=== PATIENT | female | born 1995 | race Caucasian/White ===

== ENCOUNTER 2023-05-09 06:29 | Day surgery (SDC) | payer BC ==
[~2023-05-09] VITALS: Ht 172.7 cm; Wt 104.0 kg
[2023-05-09] MEDS ORDERED: LR 1,000 ML IV ONE (06:30)
[2023-05-09] MEDS ORDERED: PRENATAL TABLET PO (07:24)
[2023-05-09] MEDS ORDERED: ADVIL200 MG PO (07:25)
[2023-05-09 07:41] VITALS: BP 129/79; PULSE 90; TEMP 98.2
[2023-05-09] MEDS ORDERED: Ketorolac 30 MG/ML VIAL ONE (08:19)
[2023-05-09] MEDS ORDERED: Ondansetron 4 MG/2 ML VIAL ONE (08:19)
[2023-05-09] MEDS ORDERED: fentaNYL 50 MCG/ML 2 ML VIAL ONE (08:19)
[2023-05-09] MEDS ORDERED: Lidocaine PF 2% (20 MG/ML) 5 ML VIAL ONE (08:20)
[2023-05-09] MEDS ORDERED: droPERidol 2.5 MG/ML 2 ML VIAL IV PRN (08:45)
[2023-05-09] MEDS ORDERED: Meperidine 50 MG/ML 1 ML VIAL IV PRN (08:45)
[2023-05-09] MEDS ORDERED: fentaNYL 50 MCG/ML 2 ML VIAL IV PRN (08:45)
[2023-05-09 08:50] VITALS: BP 130/81; PULSE 94; TEMP 98.1
[2023-05-09] MEDS ORDERED: oxyCODONE 5 MG TAB PO PRN (09:00)
[2023-05-09] MEDS ORDERED: Acetaminophen 500 MG TAB PO PRN (09:00)
[2023-05-09] MEDS ORDERED: LR 1,000 ML IV SCH (09:00)
[2023-05-09] MEDS ORDERED: Naloxone 0.4 MG/ML VIAL IV PRN (09:00)
[2023-05-09] MEDS ORDERED: Doxycycline Monohydrate 100 MG CAP PO ONE (09:00)
[2023-05-09] MEDS ORDERED: Ondansetron 4 MG/2 ML VIAL IV PRN (09:00)
[2023-05-09] MEDS ORDERED: Docusate Sodium 100 MG CAP PO SCH (09:00)
[2023-05-09 09:05] VITALS: BP 128/76; PULSE 89
[2023-05-09 09:20] VITALS: BP 122/76; PULSE 92
--- NOTE | 2023-05-09 09:44 | NUR ---
[id number]: PT TO RECOVERY BAY 2 FROM [place] S/P D&C A&O, PLACED ON MONITOR, VSS ON RA RECEIVED REPORT AND ASSUMED CARE OF PT FROM LUCITA BUSTILLOS AND CARLOS VILLA (PERIPAD WITH MESH BRIEFS) CDI PT DENIES SIGNIFICANT COMPLAINT/PAIN AT THIS TIME SPOUSE BROUGHT TO BEDSIDE PROVIDED FOOD/FLUIDS, TOLERATING WELL PT HAS REMAINED A&O, NAD, VSS ON RA, TOLERATING PO, IS WITHOUT SIGNIFICANT COMPLAINT, WITH STEADY GAIT IV D/C'D. D/C INSTRUCTIONS, FOLLOW UP REVIEWED AND HANDED TO PT. ALL QUESTIONS AND CONCERNS ADDRESSED TO PT SATISFACTION. TAKEN TO EXIT VIA W/C WITH ALL BELONGINGS AND PAPERWORK IN HAND, ASSISTED INTO PASSENGER SEAT OF POV. SPOUSE TO DRIVE HOME.
[2023-05-09] MEDS ORDERED: Ibuprofen 800 MG TAB PO SCH (14:48)
== END 2023-05-09 09:35 | disposition home or self-care (01) ==
LOC: SDCO 06:29
DX: O03.4 Incomplete spontaneous abortion without complication (principal)
CPT/HCPCS: J1885; J2405; J2704; J3010; J7120